=== PATIENT | female | born 1960 | race Caucasian/White ===

== ENCOUNTER 2020-08-01 16:07 | Outpatient (CLI) | payer BC, SELFPAY ==
--- NOTE | ~2020-08-01 | XR_ITS ---
XR sacroiliac joints min 3V DATE: 08/01/2020 16:37 INDICATION: Low back pain and bilateral sacroiliac joint pain for 6 months TECHNIQUE: AP and bilateral oblique views COMPARISON: None FINDINGS: There is normal alignment at the sacroiliac joints. No erosive change, significant degenera tive change or ankylosis. IMPRESSION: Negative Reviewed, dictated and finalized at Location [facility]. Reviewed, dictated and finalized at location A. IMPRESSION: Negative
--- NOTE | ~2020-08-01 | XR_ITS ---
XR lumbar spine 2-3V DATE: 08/01/2020 16:38 INDICATION: Low back pain, sacroiliac joint pain for 6 months TECHNIQUE: AP, lateral, coned lateral lumbosacral views COMPARISON: None FINDINGS: There is minimal dextroscoliosis of the lower thoracic and lumbar spine. No fracture or bone destruction. The included lower thoracic and lumbar pedicles are intact. There is mild degenerative disc disease at L1-2. Remaining lumbar and lumbosacral interspaces appear well preserved. The sacroiliac joints appear normal. IMPRESSION: Mild degenerative disc disease at L1-2 Reviewed, dictated and finalized at location A.
== END 2020-08-01 16:08 | disposition home or self-care (01) ==
PROVIDERS: PCP Internal Medicine; Visit Provider Internal Medicine
DX: M54.5 Low back pain (principal)
CPT/HCPCS: 72100; 72202

== ENCOUNTER 2020-08-23 10:09 | Outpatient (CLI) | payer BC, SELFPAY ==
--- NOTE | ~2020-08-23 | XR_ITS ---
EXAMINATION: XR sacroiliac jt inj w imag LT DATE: 08/23/2020 11:37 INDICATION: Low back and left sacroiliac joint pain. TECHNIQUE: A time-out was performed to verify the patient's name, date of , and procedure to b e performed. The procedure including the risks, benefits, and alternatives was discussed with the pat ient. Risks discussed included bleeding and infection. The patient understood the risks and agreed to proceed. The skin overlying the left sacroiliac joint was prepped and draped in usual sterile fashi on. Anesthetic was administered with 1% lidocaine subcutaneously. A 22 G needle was advanced under fluoroscopic guidance into the joint. Injection of 1 mL of Omnipaque 240 confirmed intra-articular p osition of the needle. Subsequently, injectate consisting of 5 mm of a 3:1:1 mixture of 1% lidocaine : 4 mg/mL dexamethasone: 40 mg/mL Kenalog was instilled for a total dosage of 4 mg dexamethasone and 40 mg Kenalog. Washout of contrast was seen confirming intra-articular administration. The needle was removed and the entry site was cleaned and dressed. There were no immediate complications. Fluorosc opy exposure time was 0.1 minutes. The total number of images was 3. FINDINGS: Real-time fluoroscopy demonstrates the needle in the left sacroiliac joint. Patient's pain prior to procedure:06/28. Patient's pain following the procedure: 04/30. IMPRESSION: 1. Left sacroiliac joint injection of local anesthetic and steroid with decrease in the patient's pre senting pain. Reviewed, dictated and finalized at location A. IMPRESSION: 1. Left sacroiliac joint injection of local anesthetic and steroid with decreas e in the patient's presenting pain.
== END 2020-08-23 10:10 | disposition home or self-care (01) ==
PROVIDERS: PCP Internal Medicine; Visit Provider Internal Medicine
DX: M54.5 Low back pain (principal); M53.3 Sacrococcygeal disorders, not elsewhere classified
CPT/HCPCS: 27096; G0260; J1100; J3301; Q9966

== ENCOUNTER 2020-10-13 09:22 | Outpatient (CLI) | payer BC, SELFPAY ==
--- NOTE | ~2020-10-13 | XR_ITS ---
EXAMINATION: XR chest 2V DATE: 10/13/2020 09:43 INDICATION: Hypertension TECHNIQUE: PA and lateral views of the chest are obtained. COMPARISON: None available FINDINGS: The lungs are free of acute opacities. There is no pleural effusion or pneumothorax. The ca rdiomediastinal silhouette is normal. The visualized bones and soft tissues are unremarkable. IMPRESSION: 1. No acute cardiopulmonary abnormality. Reviewed, dictated and finalized at location A.
== END 2020-10-13 09:23 | disposition home or self-care (01) ==
LOC: CHSIMG 09:25
PROVIDERS: PCP Internal Medicine
DX: Z01.818 Encounter for other preprocedural examination (principal); I10 Essential (primary) hypertension
CPT/HCPCS: 71046

== ENCOUNTER 2020-12-08 16:00 | Outpatient (CLI) | payer BC, SELFPAY ==
--- NOTE | ~2020-12-08 | XR_ITS ---
XR hip LT min 2V DATE: 12/08/2020 16:22 INDICATION: Posterior left hip pain for 6 to 8 months. No injury. TECHNIQUE: AP and lateral views of left hip COMPARISON: None FINDINGS: There is mild osteoarthritis at the left hip. No fracture or dislocation, avascular necrosi s or bone destruction. The pubic symphysis and left sacroiliac joint appear normal. IMPRESSION: Mild left hip osteoarthritis Reviewed, dictated and finalized at location A.
== END 2020-12-08 16:01 | disposition home or self-care (01) ==
LOC: CHSLAB 16:02
PROVIDERS: PCP Internal Medicine; Visit Provider Internal Medicine
DX: M25.552 Pain in left hip (principal)
CPT/HCPCS: 73502

== ENCOUNTER 2021-01-29 14:57 | Outpatient (RCR) | payer BC, SELFPAY ==
--- NOTE | 2021-01-29 15:57 | PTOPEVAL ---
Thank you for referring Simona Sullivan to [facility].? The patient is scheduled to be seen for therapy? ____x/week for ___ weeks. Please review, sign, date and return this plan of care KRISHAN. I agree with and certify that the following plan of care is medically necessary. Referring Physician Date Admitting Provider: Attending Provider: Micah Nicolas Referring Provider: VesnaPT Outpatient Evaluation Start: 01/29/21 14:56 Freq: Status: Active Protocol: Document 01/29/21 14:56 ACR (Rec: 01/29/21 15:56 ACR [id number]) Therapy Assessment Status Assessment Status Assessment Status Evaluation Evaluation Information Problem Diagnosis left lower back pain Onset 06/01/20 Subjective Information Patient states that there is Query Text:As Reported By Patient/ no mechanism of injury and it Family occured gradually. She states she got some X-rays that show arthritis. The patient states that sitting for a prolonged period of time, riding in the car, and sleeping are all the most difficult activities. She states that she is very active and the pain only bothers her when she is still. Patient states her goal for therapy is to decrease pain so she can sleep at night. Prior Level of Function Activity Level (Last 3 Months) Occupation receptionist secretary Hand Dominance Right Activity of Daily Living Ability Independent Indoor/Home Mobility Independent Community Mobility Independent Stairs Ability Independent Functional Cognition (Planning, Shopping Independent , Taking Medications) Cooking Yes Cleaning Yes Laundry Yes Shopping Yes Driving Yes Pain Assessment Timing of Pain Assessment Timing of Pain Assessment Assessment Pain Scale Pain Scale Used Numeric (1 - 10) Self Report Pain Assessment Lower Back Reported Pain Level 4 Lowest Pain Intensity 2 Greatest Pain Intensity 10 Additional Pain Comments digging in it Pain Score Pain Score 4: Self Report Interventions Used Interventions Used By Clinicians Activity or ADL's,Exercise Cervical and Lumbar ROM Lumbar ROM Lumbar ROM 75% of Normal Lower Extremity Muscle Strength Testing Hip Strength Right Hip Fle
== END 2021-02-21 17:03 | disposition home or self-care (01) ==
LOC: CHSPT 14:57
PROVIDERS: PCP Internal Medicine
DX: M47.816 Spondylosis without myelopathy or radiculopathy, lumbar region (principal)
CPT/HCPCS: 97014; 97110; 97140; 97161; G0283

== ENCOUNTER 2022-01-03 14:49 | Outpatient (CLI) | payer BC, SELFPAY ==
--- NOTE | ~2022-01-03 | XR_ITS ---
XR shoulder RT min 2V DATE: 01/03/2022 15:18 INDICATION: Right shoulder pain after pulling injury 6 months ago TECHNIQUE: 4 views COMPARISON: 08/16/2013 right shoulder FINDINGS: No fracture or dislocation, periosteal reaction or bone destruction or abnormal soft tissue calcification. IMPRESSION: Negative Reviewed, dictated and finalized at location A. IMPRESSION: Negative
--- NOTE | ~2022-01-03 | MM_ITS ---
EXAMINATION: MM screening donavan BI w preeti HISTORY: Screening mammogram TECHNIQUE: Craniocaudal and mediolateral oblique 3-D tomosynthesis images were obtained and synthetic 2-D images were generated. CAD analysis was submitted and interpreted. COMPARISON: 04/18/2015 right mammogram and right breast ultrasound examination BREAST PARENCHYMAL COMPOSITION: There are scattered areas of fibroglandular density. FINDINGS: There is no evidence of suspicious mass, calcification, or architectural distortion to sugg est malignancy in either breast. There has been no suspicious interval change. IMPRESSION: 1. No mammographic evidence of malignancy. 2. Recommend routine screening mammography in one year. BI-RADS Category 1: Negative Reviewed, dictated and finalized at location A.
== END 2022-01-03 14:50 | disposition home or self-care (01) ==
LOC: CHSIMG 14:51
PROVIDERS: PCP Internal Medicine; Visit Provider Internal Medicine
DX: M25.511 Pain in right shoulder (principal); Z12.31 Encounter for screening mammogram for malignant neoplasm of breast
CPT/HCPCS: 73030; 77063; 77067

== ENCOUNTER 2022-01-19 08:18 | Outpatient (CLI) | payer BC, SELFPAY ==
--- NOTE | ~2022-01-19 | MR_ITS ---
EXAMINATION: MR shoulder RT wo con DATE: 01/19/2022 09:15 INDICATION: Right shoulder pain with limited range of motion post pulling injury while climbing into a truck TECHNIQUE: Magnetic resonance imaging (MRI) of the right shoulder was performed without intravenous c ontrast. Sequences included axial PD-weighted FS FSE, coronal oblique PD-weighted FS FSE, coronal obl ique T2-weighted FS FSE and sagittal PD-weighted FS FSE. COMPARISON: None. FINDINGS: Coracoacromial arch: The acromion undersurface is curved in morphology (type II). The coracoacromial ligament is normal. M inimal acromioclavicular osteoarthritis. Rotator cuff: Supraspinatus and subscapularis tendinopathy without tear. The infraspinatus and teres minor tendons are normal. Normal rotator cuff muscle bulk and signal. Biceps tendon, glenoid labrum and glenohumeral cartilage: Long head of the biceps tendon is normal. There is a tear at the 10:30-11:30 position of the posterio r superior glenoid labrum. Glenohumeral cartilage appears normal. There is small region of mild subar ticular cystic change at the 1:00 position of the anterosuperior glenoid which suggests possibility o f otherwise occult high-grade overlying chondromalacia. Fluid: Physiologic amount of fluid in the glenohumeral joint and biceps tendon sheath. No loose osteochondr al bodies. No abnormal fluid signal in the subacromial/subdeltoid bursa to suggest bursitis. Bones: Normal marrow signal with no edema, fracture or pathologic marrow replacing process. There is additio nal mild cystic change underlying the subscapularis footplate at the lesser tuberosity. IMPRESSION: 1. Mild supraspinatus and subscapularis tendinopathy without tear. 2. Small tear at the posterior superior glenoid labrum. 3. Mild subarticular cystic change at the anterosuperior glenoid suggesting possible otherwise occult overlying high-grade chondromalacia. Reviewed, dictated and finalized at location A. IMPRESSION: 1. Mild supraspinatus and subscapularis tendinopathy without tear. 2. Small tear at the posterior superior glenoid labrum. 3. Mild subarticular cystic change at the anterosuperior glenoid suggesting pos sible otherwise occult overlying high-grade chondromalacia.
== END 2022-01-19 08:19 | disposition home or self-care (01) ==
LOC: CHSIMG 08:19
PROVIDERS: PCP Internal Medicine; Visit Provider Internal Medicine
DX: M25.511 Pain in right shoulder (principal)
CPT/HCPCS: 73221

== ENCOUNTER 2022-06-10 14:19 | Outpatient (CLI) | payer BC, SELFPAY ==
--- NOTE | ~2022-06-10 | XR_ITS ---
Clinical Indication: Cough PA and lateral views of the chest: Comparison: 10/13/2020 Findings: The lungs are clear, without evidence of focal consolidation or pleural effusion. Cardiome diastinal silhouette is within normal limits. Bones and soft tissues are unremarkable. Impression: Normal chest. Reviewed, dictated and finalized at [facility]. ENTICE FUNERAL DIRECTOR Impression: Normal chest.
[2022-06-10 15:06] LABS: Basophils Absolute Auto 0.05 K/mm3 (0.00-0.10); Basophils Percent Auto 0.6 % (0.0-1.0); Eosinophils Absolute Auto 0.54 K/mm3 (0.02-0.50); Eosinophils Percent Auto 6.3 % (1.0-6.0); Hematocrit 39.6 % (35.0-49.0); Hemoglobin 12.7 g/dL (12.0-15.0); Immature Granulocyte Absolute 0.03 K/mm3 (0.00-0.00); Immature Granulocyte Percent A 0.4 % (0.0-0.0); Lymphocytes Absolute Auto 2.71 K/mm3 (1.10-4.50); Lymphocytes Percent Auto 31.8 % (18.0-42.0); Mean Corpuscular HGB Conc 32.1 g/dL (32.0-36.0); Mean Corpuscular Hemoglobin 30.5 pg (27.0-31.0); Mean Corpuscular Volume 95.2 fL (78.0-102.0); Monocytes Absolute Auto 0.76 K/mm3 (0.10-0.90); Monocytes Percent Auto 8.9 % (2.0-11.0); Neutrophils Absolute Auto 4.4 K/mm3 (1.7-7.2); Platelet Count Result 366 K/mm3 (150-420); Red Blood Count 4.16 M/mm3 (4.20-5.40); Red Cell Distribution Width 12.3 % (11.6-14.4); White Blood Count 8.5 K/mm3 (4.8-10.8)
== END 2022-06-10 14:20 | disposition home or self-care (01) ==
LOC: CHSLAB 14:21
PROVIDERS: PCP Internal Medicine; Visit Provider Internal Medicine
DX: R05.9 Cough, unspecified (principal)
CPT/HCPCS: 36415; 71046; 85025

== ENCOUNTER 2022-08-23 15:14 | Outpatient (CLI) | payer BC, SELFPAY ==
--- NOTE | ~2022-08-23 | US_ITS ---
EXAMINATION: US venous doppler UE RT DATE: 08/23/2022 15:49 INDICATION: Right upper extremity redness and warmth. TECHNIQUE: Grayscale ultrasound images without and with compression and Doppler ultrasound images of the right upper extremity veins were obtained. COMPARISON: None. FINDINGS: The visualized portions of the right internal jugular vein, subclavian vein, axillary vein, brachial veins, basilic vein, cephalic vein, radial vein, and ulnar vein are patent. IMPRESSION: 1. No deep venous thrombosis. Reviewed, dictated and finalized at location K.
== END 2022-08-23 15:15 | disposition home or self-care (01) ==
PROVIDERS: PCP Internal Medicine; Visit Provider Internal Medicine
DX: L03.113 Cellulitis of right upper limb (principal)
CPT/HCPCS: 93971

== ENCOUNTER 2023-01-27 07:42 | Outpatient (CLI) | payer BC, SELFPAY ==
--- NOTE | ~2023-01-27 | DEXA_ITS ---
Bone Density Report Name: JATIN CANTU Age: 62 Sex: Female Ethnicity: White Date of : 1960 Indication: postmenopausal; screening for osteoporosis; hysterectomy; Referring Provider: Paresh Thomas Study: Bone densitometry was performed. Exam Date: January 27, 2023 Accession number: [id number] Bone Density: Region BMD T-score Z-score Classification AP Spine(L1-L4) 0.985 -0.6 0.9 Normal Femoral Neck (Left) 0.746 -0.9 0.4 Normal Total Hip (Left) 0.970 0.2 1.2 Normal Femoral Neck (Right) 0.756 -0.8 0.5 Normal Total Hip (Right) 0.968 0.2 1.2 Normal Femoral Neck Mean 0.751 -0.9 0.4 Normal Total Hip Mean 0.969 0.2 1.2 Normal World Health Organization criteria for BMD impression classify patients as: Normal (T-score at or above -1.0), Osteopenia (T-score between -1.0 and -2.5), or Osteoporosis (T-score at or below -2.5). 10-year Fracture Risk: FRAX not reported because: All T-scores for Spine Total, Hip Total, Femoral Neck at or above -1.0 Clinical Information Provided by Patient: Has the following medical conditions: Hysterectomy Patient maximum height was 64 Menopause Age: 44 No regular weight bearing exercise Does not regularly consume dairy products Onset of menses at age 15 Number of children 2 Impression: The patient has normal bone mass. Discussion: BONE DENSITY IS ABOVE THE MINIMUM DESIRABLE LEVEL AT ALL SKELETAL SITES TESTED. This patient?s bone mineral density is above the minimum desirable level (T-score -1.0 or better) at all sites measured. The patient should follow a healthful lifestyle (good nutrition with adequate calcium and vitamin D, and appropriate weight-bearing exercise). Follow-Up: Consider repeating this study in 5 years or sooner if there is some new clinical indication. Reported by: Dr. Jorge Fernandez on 01/27/2023 8:22:00 AM. Reviewed, dictated and finalized at location A.
--- NOTE | ~2023-01-27 | MM_ITS ---
EXAMINATION: MM screening donavan BI w preeti HISTORY: Screening mammogram TECHNIQUE: Craniocaudal and mediolateral oblique 3-D tomosynthesis images were obtained and synthetic 2-D images were generated. CAD analysis was submitted and interpreted. COMPARISON: 01/03/2022 bilateral screening mammogram BREAST PARENCHYMAL COMPOSITION: There are scattered areas of fibroglandular density. FINDINGS: There is an asymmetric approximately 9 mm opacity in the posterior upper inner right breast not far from midline. Diagnostic right mammogram and right breast ultrasound examination are recomme nded. Otherwise no suspicious mass, architectural distortion, malignant calcification, skin thickening or r etraction or significant new or developing density of either breast is detected. IMPRESSION: 1. Asymmetric approximately 9 mm opacity in the posterior upper inner right breast 2. Diagnostic right mammogram and right breast ultrasound examination are recommended BI-RADS Category 0: Incomplete: Needs additional imaging evaluation. Reviewed, dictated and finalized at location A. IMPRESSION: 1. Asymmetric approximately 9 mm opacity in the posterior upper inner right jun ast 2. Diagnostic right mammogram and right breast ultrasound examination are recom mended BI-RADS Category 0: Incomplete: Needs additional imaging evaluation.
== END 2023-01-27 07:43 | disposition home or self-care (01) ==
LOC: CHSIMG 07:43
PROVIDERS: PCP Internal Medicine; Visit Provider Internal Medicine
DX: Z12.31 Encounter for screening mammogram for malignant neoplasm of breast (principal); Z78.0 Asymptomatic menopausal state; R92.8 Other abnormal and inconclusive findings on diagnostic imaging of breast
CPT/HCPCS: 77063; 77067; 77080

== ENCOUNTER 2023-01-31 08:54 | Outpatient (CLI) | payer BC, SELFPAY ==
--- NOTE | ~2023-01-31 | MMUS_ITS ---
EXAMINATION: MM diagnostic donavan RT w preeti, US breast RT limited HISTORY: Asymmetric approximately 9 mm opacity in the posterior upper inner right breast on screening mammogram TECHNIQUE: Additional 3-D tomosynthesis images of were performed and synthetic 2-D images were genera deandre. CAD analysis was submitted and interpreted. High resolution breast ultrasound was performed. COMPARISON: None FINDINGS: MAMMOGRAPHIC FINDINGS: There is an approximately 6 x 11 mm low-density circumscribed opacity in the posterior upper inner qu adrant of the right breast. Another approximately 5.5 x 8.5 mm circumscribed opacity is noted in the upper posterior central oute r right breast. There is an approximately 2.3 x 4.3 mm oval nodular mass at mid to posterior depth in the upper inner quadrant of the left breast. ULTRASOUND: No suspicious mass or shadowing, cyst or other significant sonographic abnormality is detected. IMPRESSION: 1. Probably benign findings 2. Six-month follow-up right diagnostic mammogram and right breast ultrasound examination are recomme nded BI-RADS category 3, probably benign findings. Reviewed, dictated and finalized at location A. IMPRESSION: 1. Probably benign findings 2. Six-month follow-up right diagnostic mammogram and right breast ultrasound e xamination are recommended BI-RADS category 3, probably benign findings.
== END 2023-01-31 08:55 | disposition home or self-care (01) ==
LOC: CHSIMG 08:56
PROVIDERS: PCP Internal Medicine; Visit Provider Internal Medicine
DX: R92.8 Other abnormal and inconclusive findings on diagnostic imaging of breast (principal)
CPT/HCPCS: 76642; 77061; 77065; G0279

== ENCOUNTER 2023-02-24 07:37 | Outpatient (CLI) | payer BC, SELFPAY ==
--- NOTE | 2023-02-24 07:45 | EST_ITS ---
Patient Info Name: Simona Sullivan Age: 62 years : 1960 Gender: Female Ht: 64 in Wt: 228 lbs BSA: 2.21 m2 HR: 72 bpm BP: 125 / 88 mmHg Heart Rhythm: Sinus Rhythm Technical Quality: Good Exam Date: 02/24/2023 8:56 AM Exam Location: [facility] Patient Status: Outpatient Admit Date: 02/24/2023 Staff Ordering Physician: Paresh Thomas MD Attending Provider: Paresh Thomas MD Exam Type: CA stress test treadmill w NM Study Info A treadmill exercise stress test was performed. History/Risk Factors Hypertension: Yes Dyslipidemia: Yes Summary 1. 1. Negative Lamine exercise stress test for ischemic ST changes by ECG criteria. 2. 2. Reduced functional capacity, achieving 7 METs of workload. 3. 3. Appropriate HR response to exercise. 4. 4. Appropriate HR recovery at 1 minute post exercise. 5. 5. Nuclear scan to follow and will be reported separately. Please correlate with it. Protocol: Lamine Stress ECG Details Stage: REST Duration (min): 2 min : 25 sec Speed (mph): 0.0 Grade (%): 0 HR (bpm): 73 SBP (mmHg): 125 DBP (mmHg): 88 METS: --- Stage: REST Duration (min): 2 min : 56 sec Speed (mph): 0.0 Grade (%): 0 HR (bpm): 73 SBP (mmHg): 125 DBP (mmHg): 88 METS: --- Stage: REST Duration (min): 10 min : 29 sec Speed (mph): 0.0 Grade (%): 0 HR (bpm): 81 SBP (mmHg): 125 DBP (mmHg): 88 METS: --- Stage: STAGE 1 Duration (min): 1 min : 0 sec Speed (mph): 1.7 Grade (%): 10 HR (bpm): 111 SBP (mmHg): 125 DBP (mmHg): 88 METS: --- Stage: STAGE 1 Duration (min): 2 min : 0 sec Speed (mph): 1.7 Grade (%): 10 HR (bpm): 123 SBP (mmHg): 125 DBP (mmHg): 88 METS: --- Stage: STAGE 1 Duration (min): 3 min : 0 sec Speed (mph): 1.7 Grade (%): 10 HR (bpm): 125 SBP (mmHg): 162 DBP (mmHg): 87 METS: --- Stage: STAGE 2 Duration (min): 1 min : 0 sec Speed (mph): 2.5 Grade (%): 12 HR (bpm): 132 SBP (mmHg): 162 DBP (mmHg): 87 METS: --- Stage: STAGE 2 Duration (min): 2 min : 0 sec Speed (mph): 2.5 Grade (%): 12 HR (bpm): 140 SBP (mmHg): 162 DBP (mmHg): 87 METS: --- Stage: STAGE 2 Duration (min): 3 min : 0 sec Speed (mph): 2.5 Grade (%): 12 HR (bpm): 145 SBP (mmHg): 187 DBP (mmHg): 65 METS: --- Stage: RECOVERY Duration (min): 0 min : 59 sec Speed (mph): 0.0 Grade (%): 0 HR (bpm): 109 SBP (mmHg): 187 DBP (mmHg): 65 METS: --- Stage: RECOVERY Duration (min): 1 min : 59 sec Speed (mph): 0.0 Grade (%): 0 HR (bpm): 96 SBP (mmHg): 187 DBP (mmHg): 65 METS: --- Stage: RECOVERY Duration (min): 2 min : 59 sec Speed (mph): 0.0 Grade (%): 0 HR (bpm): 93 SBP (mmHg): 181 DBP (mmHg): 74 METS: --- Stage: RECOVERY Duration (min): 3 min : 59 sec Speed (mph): 0.0 Grade (%): 0 HR (bpm): 100 SBP (mmHg): 141 DBP (mmHg): 74 METS: ---
--- NOTE | 2023-02-24 13:57 | WPDCARIOSTRE ---
Nuclear Stress Test INDICATIONS Indications: Chest pain PROCEDURE Procedure Performed: Myocardial Perf Spect-Multi Procedure: Patient underwent a lexiscan stress test and immediately was injected with 31.2 mCi of cardiolyte. Multiple tomographic images were obtained. These are of good quality. There is no perfusion defects with stress imaging. A separate resting images were obtained after patient was injected with 10 mCi of cardiolyte. Multiple tomographic images were obtained. These are of good quality. There is no perfusion defects with rest imaging. CONCLUSION Conclusion: 1. Normal myocardial perfusion imaging demonstrating no perfusion defects with stress or rest imaging. 2. No evidence of reversible ischemia. 3. Left ventriculogram demonstrates normal measured ejection fraction of 72% with no wall motion abnormalities. 4. TID score 0.85 is normal.
== END 2023-02-24 07:38 | disposition home or self-care (01) ==
LOC: CHSCARD 07:38
PROVIDERS: PCP Internal Medicine; Visit Provider Internal Medicine
DX: R07.9 Chest pain, unspecified (principal)
CPT/HCPCS: 78452; 93017; A9502

== ENCOUNTER 2023-03-10 16:11 | Outpatient (CLI) | payer BC, SELFPAY ==
--- NOTE | ~2023-03-10 | XR_ITS ---
EXAMINATION: XR hand RT min 3V INDICATION: Right hand pain TECHNIQUE: Three views of the right hand are obtained. COMPARISON: None available FINDINGS: Bone alignment is normal. There is no fracture. There is advanced osteoarthritis at the thi rd distal interphalangeal joint. There is mild osteoarthritis of multiple interphalangeal joints. The soft tissues are unremarkable. IMPRESSION: 1. Polyarticular osteoarthritis without acute osseous abnormality. Reviewed, dictated and finalized at location F. SAFETY PHYSICIAN
--- NOTE | ~2023-03-10 | XR_ITS ---
EXAMINATION:XR_CERV2-3V_CR DATE: 03/10/2023 16:52 INDICATION: Neck pain TECHNIQUE: AP, lateral, lateral swimmers and odontoid views of the cervical spine are provided. COMPARISON: None FINDINGS: Alignment is normal. The odontoid process is intact. No fracture is identified. The vertebr al body heights are maintained. There is mild loss of intervertebral disc space height at C5-C6 and C 6-7. There is multilevel moderate facet and uncovertebral joint osteoarthritis. Prevertebral soft tis sues are normal. IMPRESSION: 1. Mild cervical spondylosis without acute findings. Reviewed, dictated and finalized at location F. UTER HARDWARE DEVELOPER
--- NOTE | ~2023-03-10 | XR_ITS ---
EXAMINATION: XR wrist RT min 3V INDICATION: Right wrist pain TECHNIQUE: Four views of the right wrist are obtained. COMPARISON: 09/26/2012 FINDINGS: Bone alignment is normal. There is no fracture. There is moderate osteoarthritis at the fir st carpometacarpal joint. IMPRESSION: 1. Osteoarthritis without acute osseous abnormality. Reviewed, dictated and finalized at location F. AND GAMES HAND FINISHER
== END 2023-03-10 16:12 | disposition home or self-care (01) ==
LOC: CHSIMG 16:14
PROVIDERS: PCP Internal Medicine; Visit Provider Internal Medicine
DX: M54.2 Cervicalgia (principal); M19.031 Primary osteoarthritis, right wrist; M43.02 Spondylolysis, cervical region
CPT/HCPCS: 72040; 73110; 73130

== ENCOUNTER 2024-10-29 10:43 | Outpatient (CLI) | payer BC, SELFPAY ==
--- NOTE | ~2024-10-29 | XR_ITS ---
EXAM/PROCEDURE: XR chest 2V - 10/29/2024 10:49 CDT HISTORY: 64 years old Female with productive cough/1 week TECHNIQUE: Lateral view of the chest. COMPARISON: None available. FINDINGS: LUNGS/ PLEURA: No focal consolidation. No appreciable pneumothorax or large pleural effusion. HEART/ MEDIASTINUM: Heart appears normal in size. BONES: No acute osseous abnormality. OTHER: Visualized upper abdomen is unremarkable. IMPRESSION: Limited evaluation. Only the lateral view available. Within the limitations of the examination, no ac nilam process seen. Reviewed, dictated and finalized at location A. IMPRESSION: Limited evaluation. Only the lateral view available. Within the limitations of the examination, no acute process seen.
--- OUTSIDE RECORDS SUMMARY | 2024-10-29 10:51 | XMS_ITS | Data Portability ---
Author Organization [facility], [address] 4[facility] Neurology ([place]) Address [address] 4th [place] [address] Care Team Providers Care Asset Specialist Name Role Phone PAMELA CLEMENT Primary Care Provider PAMELA CLEMENT Referring Provider Assessment Encounter Date Assessment Date Assessment LastModified by Organization Details LastModified Time 02/24/2024 02/24/2024 The history and physical dated completed by has been reviewed, the patient has been examined and no change has occurred in the patient s condition since the history and physical was completed. [email or web address] Not available 02/24/2024 05:24:37 03/09/2024 03/09/2024 Chief complaint: Status post right middle and ring trigger finger release History of present illness: Patient is a 63-year-old female presenting to the clinic for postoperative evaluation 2 weeks following a right middle and ring trigger finger release. Patient reports she is doing well and her pain is well-controlled. She denies any erythema or drainage from her incision. She reports she has not noticed any further triggering of her right middle and ring fingers. Exam: Patient is in no acute distress and is well-dressed and well-nourished. Patient has appropriate mood and affect. Respirations are nonlabored. Sclera are nonicteric. Patient has well-healed surgical incisions that are without erythema or ecchymosis. Patient is able to make a full fist and is able to flex and extend all fingers without difficulty. Radial pulses 2+. Capillary refill olivares and occurs within 2 seconds. Assessment: Status post right middle and ring trigger finger release Plan: Patient is doing very well following her surgery. Sutures removed in office today. She was instructed on proper postoperative care including scar tissue/Theraputty. Patient will call the office with any questions or concerns. [email or web address] Not available 03/09/2024 12:18:24 06/25/2024 06/25/2024 IMPRESSION: 1. Clinical features most consistent with polymyalgia rheumatica. She does have a significant component of spinal discomfort so cannot entirely exclude a seronegative spondyloarthropathy though she has no external features such as dactylitis or other findings that would indicate such a condition. Certainly no other underlying risk factors such as psoriasis or inflammatory bowel disease or inflammatory eye issues. We will check an HLAB27 nonetheless. 2. Polyarticular osteoarthritis. 3. Cervical spondylosis. 4. Lumbar spondylosis. PLAN: 1. Labs today, including DMARD labs, hepatitis B and C screen and QuantiFERON-TB Gold assay in case we eventually need to use steroid sparing therapy. We will also an HLAB27 screen. 2. We will obtain a copy of her bone densitometry from last year from [facility] for my review. 3. Restart prednisone low dose 10 mg daily. We will complete a full year of therapy by tapering by 1 mg decrements monthly. We will have her return to clinic in 4 months to assess her clinical progress. 4. Patient is given literature on steroid safety and polymyalgia rheumatica to review. Today all of her questions and concerns were addressed in detail. [email or web address] Not available 06/25/2024 17:16:48 09/30/2024 09/30/2024 IMPRESSION: 1. Clinical features suggestive of polymyalgia rheumatica versus possibly seronegative RA versus a spondyloarthritis? 2. Osteoarthritis. PLAN: 1. Recommend to the patient today that she stop Celebrex. I would avoid all oral NSAIDs in light of the potential side effects. 2. Hydrate well with 60 ounces of water intake daily. 3. Increase prednisone to 20 mg daily for 2 weeks, then taper to 15 mg daily for 2 weeks, then 10 mg daily thereafter. 4. May use acetaminophen up to 1 g p.o. t.i.d. p.r.n. for analgesic relief. 5. Discussed with the patient today steroid sparing medications. We compared and contrasted methotrexate versus KEVZARA and IL6 inhibitor, but is an injectable biologic 200 mg subcutaneously every 2 weeks to help promote steroid sparing in patients with polymyalgia rheumatica. It also would be beneficial should this, in fact, be seronegative RA. KEVZARA s indications, risks, benefits and potential side effects, including risk of hyperlipidemia, cytopenias, infections, injection site reactions and constitutional symptoms all discussed with the patient today in detail. She wants to pursue KEVZARA therapy for steroid sparing effect. 6. Followup visit in 3 months. [email or web address] Not available 10/02/2024 08:41:55 Plan of Treatment Reminders Order Date Submit Date Provider Last Modified By Organization Details Last Modified Time Details Appointments Establish ed Patient 15.EST 2024 03:45P M Dr. Michoacano Florence Not available Not available Not available Lab [email or web address]-[email or web address], blood 2024 025 [facility] In Only - In Laboratory, [address] [place] [address], [id number], 06/30/2024 14:40:23 CBC 2024 025 [email or web address] Only - Sc Laboratory, [address] [place] [address], [id number], 06/25/2024 18:22:09 CMP, serum or plasma 2024 025 [employer] Only - In Laboratory, [address] [place] [address], [id number], 06/25/2024 19:03:55 ESR (erythroc yte sedimenta tion rate), blood 2024 025 [facility] Only - Sc Laboratory, [address] [place] [address], [id number], 06/25/2024 19:01:05 C-reactiv e protein, quantitat luis miguel, serum or plasma 2024 025 [facility] [employer] Only - Sc Laboratory, [address] [place] [address], [id number], 06/25/2024 18:22:11 Hepatitis B virus core Ab, qual immunoass ay, serum or plasma 2024 025 [facility] In Only - Sc Laboratory, [address] [place] [address], [id number], 06/26/2024 07:40:16 HBsAg (hepatiti s B surface Ag), serum 2024 025 [facility] Only - In Laboratory, [address] [place] [address], [id number], 06/25/2024 18:35:51 hepatitis C Ab, serum 2024 025 [facility] Only - In Laboratory, [address] [place] [address], [id number], 06/25/2024 18:56:50 TB (M tuberculo sis), IFN-gamma +mitogen- gamma, blood 2024 025 [facility] Only - In Laboratory, [address] [place] [address], [id number], 06/28/2024 14:03:39 Referral None recorded. Procedures None recorded. Surgeries None recorded. Imaging None recorded. Medication Orders None recorded. Patient TargetsNo targets recorded. Patient InstructionsNo instructions recorded. Reason for Referral None Reported. Results Created Date Observation Date Name Description Value Unit Range Abnormal Flag Note LastModifiedBy Organization Detail LastModifiedTime 06/26/1906/25/2024 CBC CBC Not Available In Only - In Laboratory [address] [place] [address], [id number], 06/25/2024 18:22:09 06/26/1906/25/2024 CBC WBC 9.6 K/uL 3.8-11 .2 Not Available In Only - In Laboratory [address] [place] [address], 50747, 06/25/2024 18:22:09 06/26/1906/25/2024 CBC RBC 3.81 M/uL 3.92-5 .10 low Not Available In Only - In Laboratory [address] [place] [address], [id number], 06/25/2024 18:22:09 06/26/19 25 06/25/2024 CBC HGB 11.6 g/dL 11.8-1 5.3 low Not Available Sc Only - Sc Laboratory [address] [place] [address], 77625, 06/25/2024 18:22:09 06/26/19 25 06/25/2024 CBC HCT 35.4 % 36.5-4 4.8 low Not Available Sc Only - Sc Laboratory [address] [place] [address], [id number], 06/25/2024 18:22:09 06/26/19 25 06/25/2024 CBC MCV 92.9 fL 80.0-9 9.0 Not Available Sc Only - Sc Laboratory [address] [place] [address], [id number], 06/25/2024 18:22:09 06/26/19 25 06/25/2024 CBC MCH 30.4 pg 25.5-3 3.6 Not Available Sc Only - Sc Laboratory [address] [place] [address], [id number], 06/25/2024 18:22:09 06/26/19 25 06/25/2024 CBC MCHC 32.8 g/dL 32.0-3 6.0 Not Available Sc Only - Sc Laboratory [address] [place] [address], 22929, 06/25/2024 18:22:09 06/26/19 25 06/25/2024 CBC RDW-SD 41.1 fL 35.1 - 46.3 Not Available Sc Only - Sc Laboratory [address] [place] [address], 81736, 06/25/2024 18:22:09 06/26/19 25 06/25/2024 CBC plt 413 K/uL 130-40 0 high Not Available Sc Only - Sc Laboratory [address] [place] [address], 33897, 06/25/2024 18:22:09 06/26/19 25 06/25/2024 CBC MPV 10.2 fL 9.3-12 .8 Not Available Sc Only - In Laboratory [address] [place] [address], 33684, 06/25/2024 18:22:09 06/26/19 25 06/25/2024 C-satish ctive prote in, quant itati ve, serum or plasm a CRP high Not Available In Only - In Laboratory [address] [place] [address], [id number], 06/25/2024 18:22:11 06/26/19 25 06/25/2024 C-satish ctive prote in, quant itati ve, serum or plasm a CRP 1.9 mg/dL <0.4-0 .5 high Not Available In Only - In Laboratory [address] [place] [address], 00238, 06/25/2024 18:22:11 06/26/19 25 06/25/2024 HBsAg (hepa titis B surfa ce Ag), serum hepatitis B surface Ag NONREA CTIVE nonrea ctive Not Available In Only - In Laboratory [address] [place] [address], [id number], 06/25/2024 18:35:51 06/26/19 25 06/25/2024 hepat itis C Ab, serum hepatitis C Ab NONREA CTIVE nonrea ctive Not Available [facility] - In Laboratory [address] [place] [address], [id number], 06/25/2024 18:56:50 06/26/19 25 06/25/2024 ESR (eryt hrocy te sedim entat ion rate) , blood sed rate 43 mm/HR 0 - 30 high Not Available In Only - In Laboratory [address] [place] [address], 58642, 06/25/2024 19:01:05 06/26/19 25 06/25/2024 CMP, serum or plasm a comp. met. panel Not Available In Onl y - In Laboratory [address] [place] [address], [id number], 06/25/2024 19:03:55 03/07/20 25 06/25/2024 CMP, serum or plasm a sodium 141 mmol/ L 136-14 6 Not Available In Only - In Laboratory [address] [place] [address], [id number], 06/25/2024 19:03:55 06/26/19 25 06/25/2024 CMP, serum or plasm a potassium 4.0 mmol/ L 3.5-5. 1 Not Available In Only - In Laboratory [address] [place] [address], 03639, 06/25/2024 19:03:55 06/26/19 25 06/25/2024 CMP, serum or plasm a chloride 103 mmol/ L 98-110 Not Available In Only - In Laboratory [address] [place] [address], 60701, 06/25/2024 19:03:55 06/26/19 25 06/25/2024 CMP, serum or plasm a CO2 30 mEq/L 20-32 Not Available In Only - In Laboratory [address] [place] [address], 97118, 06/25/2024 19:03:55 06/26/19 25 06/25/2024 CMP, serum or plasm a anion gap 12 mmol/ L 10-22 Not Available In Only - In Laboratory [address] [place] [address], 02681, 06/25/2024 19:03:55 06/26/19 25 06/25/2024 CMP, serum or plasm a glucose 134 mg/dL 70-100 high Not Available In Only - In Laboratory [address] [place] [address], 45260, 06/25/2024 19:03:55 06/26/19 25 06/25/2024 CMP, serum or plasm a calcium 9.5 mg/dL 8.4-10 .4 Not Available In Only - In Laboratory [address] [place] [address], 13020, 06/25/2024 19:03:55 06/26/19 25 06/25/2024 CMP, serum or plasm a total protein 7.0 g/dL 6.4-8. 3 Not Available [facility] - In Laboratory [address] [place] [address], 19421, 06/25/2024 19:03:55 06/26/19 25 06/25/2024 CMP, serum or plasm a albumin 4.7 g/dL 3.5-5. 3 Not Available [facility] - In Laboratory [address] [place] [address], 31332, 06/25/2024 19:03:55 06/26/19 25 06/25/2024 CMP, serum or plasm a ALP 102 U/L 44 - 127 Not Available [facility] - In Laboratory [address] [place] [address], [id number], 06/25/2024 19:03:55 06/26/19 25 06/25/2024 CMP, serum or plasm a AST (SGOT) 13 U/L 10-40 Not Available [facility] - In Laboratory [address] [place] [address], 15168, 06/25/2024 19:03:55 06/26/19 25 06/25/2024 CMP, serum or plasm a total bilirubin 0.3 mg/dL 0.2-1. 2 Not Available [facility] - In Laboratory [address] [place] [address], 79425, 06/25/2024 19:03:55 06/26/19 25 06/25/2024 CMP, serum or plasm a ALT (SGPT) 13 U/L 8-35 Not Available [facility] - In Laboratory [address] [place] [address], 74535, 06/25/2024 19:03:55 06/26/19 25 06/25/2024 CMP, serum or plasm a BUN 26 mg/dL 7-21 high Not Available [facility] - In Laboratory [address] [place] [address], 12394, 06/25/2024 19:03:55 06/26/19 25 06/25/2024 CMP, serum or plasm a creatinine 1.1 mg/dL 0.7-1. 3 Not Available In Only - In Laboratory [address] [place] [address], 17694, 06/25/2024 19:03:55 06/26/19 25 06/25/2024 CMP, serum or plasm a CKD-epi GFR 57 low eGFR was calcu lated using the 2020 CKD-E PI equat ion. ([employer] Technical Officer laura Kidne y Disea se has an eGFR less than 60 mL/mi n/1.7 3mm for a perio d of three month s or more. ) This calcu latio n has not been valid ated for patie nt ages <18 or >90 years old. Not Available In Only - In Laboratory [address] [place] [address], 62260, 06/25/2024 19:03:55 06/26/19 25 06/26/2024 Hepat itis B virus core Ab, qual immun oassa y, serum or plasm a hepatitis B core Ab NEGATI VE negati ve Not Available In Only - In Laboratory [address] [place] [address], [id number], 06/26/2024 07:40:16 06/26/19 25 06/28/2024 TB (M tuber culos is), IFN-g quan+ mitog en-ga mma, blood quant TB gold Not Available In Onl y - In Laboratory [address] [place] [address], 38760, 06/28/2024 14:03:39 06/26/19 25 06/28/2024 TB (M tuber culos is), IFN-g qaun+ mitog en-ga mma, blood TB gold 0.01 IU/mL <=0.34 Not Available In Only - In Laboratory [address] [place] [address], 20106, 06/28/2024 14:03:39 06/26/19 25 06/28/2024 TB (M tuber culos is), IFN-g quan+ mitog en-ga mma, blood TB gold 2 0.01 IU/mL <=0.34 Not Available In Only - In Laboratory [address] [place] [address], 30027, 06/28/2024 14:03:39 06/26/19 25 06/28/2024 TB (M tuber culos is), IFN-g quan+ mitog en-ga mma, blood TB quant interp Negat luis miguel M. tuber culos is infec tion (late nt tuber culos is or tuber culos is disea se) unlik shonna. The resul ts of Quant iFERO N TB Gold testi ng must be inter prete d in conju nctio n with other epide miolo gical , histo rical , medic al, and diagn ostic findi ngs. Not Available In Only - In Laboratory [address] [place] [address], 06418, 06/28/2024 14:03:39 06/26/19 25 06/30/2024 hla-B 27, blood hla-B27, DNA typing Not Available In Onl y - In Laboratory [address] [place] [address], 03201, 06/30/2024 14:40:23 06/26/19 25 06/30/2024 hla-B 27, blood hla-B27 NEGATI VE HLA-B *27 Negat luis miguel B27 allel e inter preta tion for all loci based on IMGT/ HLA datab ase versi on 3.51. 0 This test was devel oped and its perfo rmanc e marline cteri stics deter mined by [facility]. It has not been clear ed or appro rajeev by the Food and Drug Admin istra tion. The FDA has deter mined that such clear ance or appro gilson is not necsofia cunningham. HLA Lab CLIA ID Moris r [id number] This test was perfo rmed using Polym erase Chain React ion (PCR) and Seque nce Speci fic Oligo nucle otide Probe s (SSOP ) techn ique. Seque nce Based Typin g (SBT) may be used as a suppl ement al metho d when neces marisa. If you have quest ions, lisbet e call [facility] custo evert ayalaerasmo ce at [phone] or email at [facility] [email or web address] om. Not Available In Only - In Laboratory [address], [address], 06/30/2024 14:40:23 07/23/19 bone densi ty No observ ation record ed. [email or web address] Not Available 2024 14:18:23 08/17/19 25 01/22/2021 imagi ng/di agnos tic resul t No observ ation record ed. [email or web address] Not Available 05:26:24 08/17/19 25 03/12/2021 imagi ng/di agnos tic resul t No observ ation record ed. [email or web address] Not Available 05:26:26 08/17/19 25 04/05/2021 imagi ng/di agnos tic resul t No observ ation record ed. [email or web address] Not Available 05:26:27 Result Notes None recorded. Problems Name Problem SNOMED Code Status Onset Date Resolution Date Notes Provider Name and Address Organization Details Recorded Time Polymyalgia rheumatica 20365001 Active 2024 [facility] 5 18:06:33 Generalized osteoarthri tis 554524664 Active 2024 Michoacano Florence MD [address] [place] [address], [address], [facility] 5 14:55:23 Cervical spondylosis 910969267 Active 2024 Michoacano Florence MD [address] [place] [address], 12770[address]679 [address], [facility] 5 14:55:30 Vitamin D deficiency 55657224 Active 2024 Michoacano Florence MD [address] [place] [address], 05401-[address] 3, [facility] 5 14:55:51 Chronic low back pain 608315064 Active 2024 Michoacano Florence MD [address] [place] [address], 78438-052 3, [facility] 5 14:56:16 Acquired trigger finger of right middle finger [id number] 05 Active 2023 Luna Byers null, [facility] 4 14:52:38 Acquired trigger finger of right ring finger [id number] 08 Active 2023 [facility] 4 14:52:52 Problem Notes None recorded. Procedures Surgical History Date Name Laterality Status Provider Name and Address Organization Details Recorded Time 02/24/20 24 SC Operative Report completed Dyllan Vail MD [address] [place] [address], [phone], [facility] 02/25/2024 06:27:01 02/24/20 24 release of trigger finger completed Silvana Ruiz [facility] 03/09/2024 17:16:55 Colonoscopy with biopsy completed Not Available Health Note 10/29/2023 12:03:05 Total hysterectomy completed Not Available Health Note 10/29/2023 12:03:05 Imaging Results None recorded. Procedure Notes None recorded. Medical Equipment None Reported. Allergies No known drug allergies Medications Name Sig Start Date Stop Date Status Note LastModified by Organization Details LastModified Time celecoxib 200 mg capsule Take 1 capsule twice a day by oral route. 09/30 completed Not Available Not Available Not Available hydrocodone 5 mg-acetamin ophen 325 mg tablet Take 1-2 tablet(s) EVERY 6 HOURS PRN for pain 06/25 completed Not Available Not Available Not Available famotidine 40 mg tablet Take 1 tablet every day by oral route. active Not Available Not Available No t Available prednisone 5 mg tablet TAKE 4 TABLETS ONCE DAILY FOR 14 DAYS, THEN TAKE 3 TABLETS ONCE DAILY FOR 14 DAYS, THEN TAKE 2 TABLETS ONCE DAILY FOR 32 DAYS (contact prescribe r) 2024 active Not Available Not Available Not Avai lable prednisolon e acetate 1 % eye drops,suspe nsion 02/23 completed Not Available Not Available Not Available prednisone 1 mg tablet TAKE TWO TO FOUR TABLETS BY MOUTH DAILY COMBINE WITH 5MG TABLETS TO OBTAIN DOSAGE SEE NOTE BELOW 2024 active Not Available Not Available Not Avai lable pravastatin 20 mg tablet active Not Available Not Available Not Available hydrochloro thiazide 25 mg tablet active Not Available Not Available No t Available hydroxychlo roquine 200 mg tablet Take 1 tablet twice a day by oral route. 06/25 completed Not Available Not Available Not Available olmesartan 40 mg tablet active Not Available Not Available Not Available Breo Ellipta 200 mcg-25 mcg/dose powder for inhalation 02/23 completed Not Available Not Available Not Available Kevzara 200 mg/1.14 mL subcutaneou s pen injector Inject 1.14 mL every 2 weeks by subcutane ous route. 2024 active Not Available Not Available Not Avai lable Vitals Date Recorded Heart rate Oxygen saturation Oxygen saturation in Arterial blood by Pulse oximetry Systolic And Diastolic Provider Name and Address Organization Details Last Updated DateTime 06/25/2024 78 /min 97 % 97 % 122/74 mm[Hg] [facility] 5 14:15:11 Date Recorded Heart rate Oxygen saturation Oxygen saturation in Arterial blood by Pulse oximetry Systolic And Diastolic Provider Name and Address Organization Details Last Updated DateTime 09/30/2024 78 /min 97 % 97 % 126/78 mm[Hg] [facility] 5 16:49:43 Social History Question Answer Notes LastModified by Organizat ion Details LastModified Time Do You Have An Advance Directive? No [email or web address] Information not available 10/29/2023 What Is Your Level Of Caffeine Consumption? None [email or web address] Information not available 10/29/2023 How Many Times Per Week Do You Exercise? Less Than 1 Time Per Week [email or web address] Information not available 10/29/2023 Do You Have A Medical Power Of Senior Technical Trainer? No [email or web address] Information not available 10/29/2023 What Was The Date Of Your Most Recent Tobacco Screening? 11/05/2023 [email or web address] Information not available 10/29/2023 What Is Your Relationship Status? [email or web address] Information not available 10/29/2023 Sex: Unknown Functional Status Question Answer Note LastModified by Organizat ion Details LastModified Time How many times per week do you consume alcohol? Less than 1 time per week [email or web address] Information not available 10/29/2023 Do you use any illicit or recreational drugs? No [email or web address] Information not available 10/29/2023 What is your level of alcohol consumption? Occasional [email or web address] Information not available 10/29/2023 Are you currently employed? Yes [email or web address] Information not available 10/29/2023 What is your occupation? [employer] [email or web address] Information not available 10/29/2023 What is your exercise level? Occasional [email or web address] Information not available 10/29/2023 Mental Status None recorded. Family History Relationship Description Onset Age of this Age Resolved Age Notes LastModified by Organization Details LastModified Time Mother Arthritis [email or web address] Not available 10/29/2023 12:03:04 Mother Chronic obstructive pulmonary disease [email or web address] Not available 2023 12:03:04 Mother Heart disease [email or web address] Not available 2023 12:03:04 Mother Hypertensive disorder [email or web address] Not available 2023 12:03:04 Mother Hypercholest erolemia [email or web address] Not available 2023 12:03:04 Brother Diabetes mellitus [email or web address] Not available 2023 12:03:04 Brother Hypertensive disorder [email or web address] Not available 2023 12:03:04 Brother Hypercholest erolemia [email or web address] Not available 2023 12:03:04 Medical History Condition Response Diabetes N Anxiety Disorder N Bleeding Disorder N Attention-deficit Hyperactivity Disorder N High Blood Pressure Y Arthritis Y Hyperlipidemia N Cancer N Thyroid Problems N Stroke N Asthma N COPD N Depression N Anemia N Seizures N Heart Disease N Fibromyalgia N Osteoporosis N Kidney Disease N Gynecological HistoryNo gynecological history recorded. Obstetrics History GPAL:G 0 P 0 0 0 0 Past Encounters Encounter ID Performer Location Encounter Start Date Encounter Closed Date Diagnosis/Indication Diagnosis SNOMED-CT Code Diagnosis ICD10 Code Diagnosis Note [id number] Dyllan Vail MD [address] [facility] ([place]) [address] [place] [address] 11/05/2023 11:22:17 11/05/2023 12:16:02 Acquired trigger finger of right middle finger [id number] 02203 M65.331 M65.341 Acquired t retail marketing manager finger of right ring finger [id number] 72784 M65.341 [id number] Dyllan Vail MD [facility] Orth[facility] ([place]) [address], [address]nd [facility] [address] 02/24/2024 13:10:32 02/25/2024 18:07:45 [id number] SHEY KLINE PA-C [address] [place] [address] Orthopedi cs ([place]) [address] [facility] [address] 03/09/2024 11:59:21 03/09/2024 12:24:42 Acquired trigger finger of right middle finger 1254979448 25725 M65.331 M65.341 Acquired t retail marketing manager finger of right ring finger [id number] 51572 M65.341 History of musculoskeletal disease 697345667 Z87.39 Follow-up status 7208733 05 Z47.89 Postoperative state 1958 5003 Z98.890 [id number] Michoacano Florence MD [address] [place] [address] Rheumatol og ([place]) [address] [place] [address] 06/25/2024 13:47:13 06/28/2024 04:48:26 Polymyalgia rheumatica 02307432 M35.3 Generalize d osteoarthritis 109558419 M15.9 Cervical spondylosis 387 417318 M47.812 Vitamin D deficiency 347 56888 E55.9 Chronic low back pain 27 9898606 M54.50 G89.29 [id number] Michoacano Florence MD [facility] Rheumatol ogy ([place]) [address] [place] [address] 09/30/2024 16:23:08 10/03/2024 06:39:27 Polymyalgia rheumatica 86793301 M35.3 Generalize d osteoarthritis 328984198 M15.9 Chronic low back pain 27 5377018 M54.50 G89.29 Health Concerns Section Related Observation LastModified by Organization Detai ls LastModified Time None Recorded Concern Status LastModified by Organization Details LastModified Time None Recorded Advance Directives Directive N: Payers Insurance Date Sequence Insurance Name Policy Number Policy De La O Covered Member ID De La O Member ID Guarantor Name 10/03/2024 1 [facility] ([facility] [id number] Simona Sullivan [id number] Simona Sullivan 07/15/2024 PAYMENT PLAN Simona Sullivan 07/15/2024 PAYMENT PLAN Simona Sullivan Notes Date Note Type Note Provider Name and Address Organization Details Recorded Time 4 text/html Simona Guido a 63 year oldfemalepresenting for care. SHEY KLINE PA-C [facility], [id number], [facility] 03/11/2024 09:19:47 5 text/html The patient is a 64-year-old postmenopausal white female, nonsmoker, with a history of asthma, hypertension, hyperlipidemia, GERD, migrainous headaches, obesity and degenerative cervical and lumbosacral spine disease, as well as osteoarthritis, who is seen today in consultation at the request of Dr. Pamela Clement, her primary care provider, regarding rheumatologic evaluation of polyarthralgias in the setting of elevated acute phase reactants, rule out underlying autoimmune arthritis. The patient describes actual onset over the past several years of gradually progressively arthralgias, mainly affecting her hands and thumbs. In fact, she has seen Dr. Vail and recently underwent release of trigger fingers. She is slated to undergo right thumb excision arthroplasty in the coming year. She reports she is used to some degree of widespread diffuse pain. She has had surgical and lumbosacral spine pain for years. In fact, she has had epidural steroid injections in the past in her back with little relief. She states, however, that in the fall of 2023 she noticed onset of a different more intense achy discomfort that ranged from the posterior aspect of her shoulders and neck through her spine to her lower back and hip areas. It was accompanied by fatigue and difficulties ambulating. She on repeated questioning really does not describe much in the way of stiffness, but states she did have difficulties getting out of chairs and ambulating over distances. She was seen by her primary care provider and underwent testing in January 2024, demonstrating moderate elevations in her CRP at 2.15 mg/dL and a sed rate of 39 mm/hour with a negative Lyme screen. Urinalysis showed 2+ leukocyte esterase. The patient states, however, she tried various nonsteroidal antiinflammatory medications. She took Celebrex, but it barely took the edge off her symptoms. Her symptoms progressed to the point that she did see her primary care provider on May 14, 2024, at which time uric acid level was 7.5 mg/dL with a normal CMP, sed rate of 48 mm/hour with a CRP elevated at 2.37 mg/dL. The patient at that point was placed on a trial of hydroxychloroquine for 2 months, but states that the medication really did not lead to any improvement in her symptoms. It was thought she might have seronegative rheumatoid arthritis, however, she eventually required a several week trial of prednisone, finally finishing this prednisone taper just today. She reports that within 48 hours of starting low dose prednisone therapy her joint symptoms dramatically improved. She experienced almost complete resolution of the discomfort throughout her shoulder and hip girdle areas. She had not been experiencing any temporal headache, visual scatoma, tongue or jaw claudication, Raynaud s symptoms, aphthous ulcers or sicca symptoms. No history of inflammatory eye disease, neck swelling, lymph node swelling, cough, pleurisy, shortness of breath. No palpitations or syncopal episodes. She had about 3 short episodes of some anterior epigastric discomfort last week. She underwent an EKG that was unremarkable. Her primary care physician placed her on PPI therapy and the pain episodes have completely stopped. She was having some reflux symptoms. She has had a normal appetite. No history of GI bleeding, transfusions, melena, hematochezia, dysuria or gross hematuria. No recent renal calculi, DVT, PE, cytopenia, seizures, numbness or tingling. Her energy level has returned to normal. Family history is remarkable for osteoarthritis in her father, but no autoimmune arthritis in the family. 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 I have reviewed the patient s past medical history and [employer] intake form.yuki Simona Mussattois a 64 year oldfemalepresenting for care. Visit Reason:Spine (Neck or Back) Spine Concerns: -Duration: approximately 1 year(s) -Location: lower back, neck, upper back -Neck symptoms: -Radiation: to back, head, shoulder -Exacerbating factors (neck): activity -Upper back symptoms: -Radiation: to neck -Lower back symptoms: -Radiation: to hip -Exacerbating factors (back): activity -Pain onset/timing: gradual onset, present constantly, occurs at night, interrupts sleep -Quality of pain: stabbing, throbbing -Denies: bowel/bladder incontinence, ecchymosis, catching/locking, drainage, fevers, warmth, instability, limited ROM, numbness, popping/clicking, erythema, tingling, weakness, weight loss, wound/laceration of the affected area -Prior spine surgery: patient denies -Pain impacting ADLs: patient denies Treatments: -Seen by outside providers: yes, per patient Cj -Prior imaging/studies:MRI, X-ray-Prior [facility]ies [facility]-Previous treatments: chiropractic treatments, injections, medications, physical therapy -Prior injections: did not improve pain, last injection approximately 5 year(s) ago -Prior medications: improved symptoms a little, including Celecoxib 200 hydroxychloroquine 200 2x -Clinical trials participant: patient denies , last treatment approximately 2 year(s) ago -Denies prior: acupuncture, occupational therapy, surgery -Prior injury/difficulty with affected area: patient denies -Concern origination: Home -Hand dominance: right hand dominant ROS: :Getting Up at Night to Pass UrineGeneral:NegativeImm han:NegativeENT:Negative Ophtho:NegativeCardiac:H igh Blood PressureRespiratory:Nega tiveGI:NegativeMusculosk eletal:Joint PainSkin:NegativeNeuro:N egativePsych:NegativeEnd o:NegativeHem:Negative Michoacano Florence MD [address] [place] [address], [phone], [facility] 06/27/2024 17:00:28 5 text/html The patient is a 64-year-old female with polymyalgia rheumatica, who is here today for a followup visit. She also has osteoarthritis. She continues on low dose prednisone 7 mg daily. She does report however, she is taking her Celebrex 200 mg orally twice daily. She reports that as she has tried to taper her prednisone her pain and stiffness in the hands, hips and lower back has worsened. She has been using ice alternating with liniments for relief. She rates the pain a 5/10 on a scale. Currently her morning stiffness is lasting up to 60 mg in duration. She denies any headache or tongue or jaw claudication or visual scatoma, neck swelling, lymph node swelling, cough, pleurisy, shortness of breath, chest pain or palpitations, GERD, melena or hematochezia, diarrhea or constipation, anorexia or early satiety. She does report that previously she was tried by Dr. Clement, her primary care provider, on hydroxychloroquine for 3 months for steroid sparing effect and it really did not work. She has not taken any other biologics or conventional DMARD agents.yuki Jarvis Lata a 64 year oldfemalepresenting for care. Michoacano Florence MD [address] [place] [address], [phone], [facility] 10/02/2024 12:15:41 OBGyn Episode No OBEpisode recorded.
--- OUTSIDE RECORDS SUMMARY | 2024-10-29 10:51 | XMS_ITS | Clinical Summary ---
Author Organization [facility] Address [address], [address] [address] Phone Care Team Providers Care Blocker Polishing Name Role Phone Paresh Thomas MD Primary Care Provider [phone] Allergies No known active allergies Medications traMADol (ULTRAM) 50 MG Tablet Take 50 mg by mouth every 6 hours as needed. 0 04/22/2018 Active celecoxib (CELEBREX) 200 MG Capsule Take 200 mg by mouth. 2 05/30/2018 Active losartan-hydroch lorothiazide (HYZAAR) 50-12.5 MG Tablet Take 1 Tab by mouth daily. 5 05/30/2018 Active pravastatin (PRAVACHOL) 10 MG Tablet Take 10 mg by mouth daily. 5 05/30/2018 Active Multiple Vitamin (MULTI-VITAMIN PO) Take 1 Tab by mouth daily. Active Calcium-Magnesiu m-Vitamin D (CALCIUM 500 PO) Take 1 Tab by mouth daily. Active Family History Medical History Relation Name Comments Cancer Brother pancreatic Cancer Father pancreatic Cancer Maternal Aunt 1 breast Cancer Maternal Aunt 2 breast Cancer Maternal Aunt 3 breast Cancer Maternal Aunt 4 breast Cancer Maternal Aunt 5 breast Cancer Mother skin Cancer Paternal Uncle liver Relation Name Status Comments Brother Father Maternal Aunt 1 Maternal Aunt 2 Maternal Aunt 3 Maternal Aunt 4 Maternal Aunt 5 Mother Alive Paternal Uncle Social History Tobacco Use Types Packs/Day Years Used Date Smoking Tobacco: Never Smokeless Tobacco: Never Alcohol Use Standard Drinks/Week Comments Yes 0 (1 standard drink = 0.6 oz pur e alcohol) rarely Comments Unknown Sex and Gender Information Value Date Recorded Sex Assigned at Not on file Legal Sex Female 10:56 PM CDT Gender Identity Not on file Sexual Orientation Not on file Last Filed Vital Signs Vital Sign Reading Time Taken Comments Blood Pressure 123/85 06/22/2018 11:26 AM FLOAT OPERATOR Pulse 93 06/22/2018 11:26 AM FLOAT OPERATOR Temperature 36 C (96.8 F) 06/22/2018 11:26 AM FLOAT OPERATOR Respiratory Rate 14 06/22/2018 11:26 AM FLOAT OPERATOR Oxygen Saturation 96% 06/22/2018 11:26 AM FLOAT OPERATOR Inhaled Oxygen Concentration - - Weight 99.8 kg (220 lb) 06/22/2018 10:14 AM FLOAT OPERATOR Height 162.6 cm (5' 4) 06/22/2018 10:14 AM FLOAT OPERATOR Body Mass Index 37.76 06/22/2018 10:14 AM FLOAT OPERATOR Plan of Treatment Health Maintenance Due Date Last Done Comments Hepatitis C Virus (HCV) Screening 1960 Cologuard 2012 Immunochemical Fecal Occult Blood 2012 Mammogram 2012 Pneumococcal Immunization (50+ years) (1 of 1 - PCV) 2012 Zoster Immunization (1 of 2) 2012 Influenza Immunization (#1) 12/21/202301/20, 03/27/2017, 01/19/2016, Additional history exists SARS-COV-2 Immunization ( season) 2023 03/05/2021, 06/03/2020, 05/06/2020 Colonoscopy 06/22/2028 06/22/2018 Colorectal Cancer Screening 06/22/2028 Respiratory Syncytial Virus (RSV) Immunization (Adult) (1 - 1-dose 75+ series) 2037 Hepatitis B Immunization Completed 004, 03/22/2003, 02/11/2003 DTaP/Tdap/Td Immunization Discontinued 04/05/2013 TdaP Immunization Completed 04/05/2013 Meningococcal Immunization (ACWY) Aged Out No longer eligible based on patient's age to complete this topic Pneumococcal Immunization Combined Aged Out No longer eligible based on patient's age to complete this topic Rotavirus Immunization Aged Out No lo nger eligible based on patient's age to complete this topic Insurance [facility] Care Teams Blocker Polishing Relationship Specialty Start Date End Date Paresh Thomas MD [address] [place], [place] [id number] PCP - General Internal Medicine 06/18/18
== END 2024-10-29 10:44 | disposition home or self-care (01) ==
LOC: CHSIMG 10:45
PROVIDERS: PCP Internal Medicine; Visit Provider Internal Medicine
DX: R05.9 Cough, unspecified (principal)
CPT/HCPCS: 71046